=== PATIENT | male | born 1990 | race Caucasian/White ===

== ENCOUNTER 2018-01-12 22:15 | Emergency (ER) | payer MEDICAID ==
[~2018-01-12] VITALS: Ht 170.2 cm; Wt 91.0 kg
[2018-01-12 22:23] VITALS: BP 183/130
== END 2018-01-12 23:00 | disposition left against medical advice (07) ==
LOC: ER 22:34
DX: T25.029A Burn of unspecified degree of unspecified foot, initial encounter (principal); Y92.89 Other specified places as the place of occurrence of the external cause; Z53.21 Procedure and treatment not carried out due to patient leaving prior to being seen by health care provider